=== PATIENT | male | born 2000 | race Two or more races ===

== ENCOUNTER → 2024-10-07 | Outpatient (CLI) | payer BC, SELFPAY ==
[2024-10-07 13:25] LABS: Basophils % (Auto) 1 % (0-2.5); Eosinophils % (Auto) 1 % (0-10); Hematocrit 39.4 % (41.0-53.0); Hemoglobin 13.5 g/dL (13.5-16.0); Immature Granulocytes % (Auto) 0 % (0-0); Immature Granulocytes Auto 0.02 Thou/mm3 (0.00-0.00); Lymphocytes # (Auto) 1.3 Thou/mm3 (1.0-4.8); Lymphocytes % (Auto) 21 % (10-50); Mean Corpuscular HGB Conc 34.3 g/dl (31.0-37.0); Mean Corpuscular Hemoglobin 31.6 pg (25.0-35.0); Mean Corpuscular Volume 92 fL (80-100); Monocytes # (Auto) 0.3 Thou/mm3 (0.0-0.8); Monocytes % (Auto) 5 % (0-12); Neutrophils # (Auto) 4.4 Thou/mm3 (1.8-7.7); Neutrophils % (Auto) 72 % (37-80); Nucleated Red Blood Cell % 0 /100 WBC (0); Platelet Count 237 Thou/mm3 (140-440); RDW Standard Deviation 44.1 fL (35.1-43.9); Red Blood Count 4.27 Miln/mm3 (4.50-5.90)
[2024-10-07 13:41] LABS: Prothrombin Time 10.9 Seconds (9.0-12.2)
[2024-10-07 13:44] LABS: Alanine Aminotransferase 45 U/L (10-49); Albumin, Serum 4.5 gm/dL (3.5-5.0); Alkaline Phosphatase 115 U/L (46-116); Anion Gap 5 (7-16); Aspartate Amino Transferase 36 U/L (0-34); BUN/Creatinine Ratio 22 Ratio (12-20); Bilirubin,Total 0.3 mg/dL (0.3-1.2); Blood Urea Nitrogen 20 mg/dL (9-23); Calcium 9.6 mg/dL (8.3-10.6); Calcium (Corrected) 9.6 mg/dL (8.5-10.1); Carbon Dioxide 30.4 mMol/L (20.0-31.0); Chloride 105 mMol/L (98-107); Creatinine (Component) 0.9 mg/dL (0.6-1.3); Globulin 1.5 gm/dL (2.3-3.5); Glucose 90 mg/dL (74-106); Osmolality,Calculated 282 (275-295); Potassium 4.7 mMol/L (3.4-5.1); Sodium 140 mMol/L (136-145); eGFR > 60 See Note
--- NOTE | 2024-10-07 14:00 | XR_ITS ---
Examination: Abdomen sonogram, complete Date and time of exam: October 07, 2024 1238 hours INDICATIONS: Fatty liver diagnosis one year ago. Technique: Multiple real-time grayscale transabdominal sonographic images of the abdomen have been obtained. Findings: 5 mm gallbladder polyp No gallstones Gallbladder wall 0.3 cm Normal common bile duct Pancreatic head 2.2 cm Aorta not enlarged Liver 18.2 cm fatty liver no focal liver lesions Normal hepatopedal portal venous flow Patent IVC Right kidney 13.0 x 5.8 x 5.1 cm cortex 1.6 cm Left kidney 12.4 x 5.4 x 5.5 cm cortex 2.1 cm Mild bilateral renal parenchymal scar formation Spleen 12.3 cm IMPRESSION: 5 mm gallbladder polyp, negative for cholelithiasis, negative for cholecystitis
== END | disposition home or self-care (01) ==
LOC: CDIM 12:22 → COPL 12:56
PROVIDERS: PCP Specialist; Referring Provider Internal Medicine; Visit Provider Radiology Diagnostic Radiology
DX: K82.4 Cholesterolosis of gallbladder (principal); R74.8 Abnormal levels of other serum enzymes
CPT/HCPCS: 36415; 76700; 80053; 85025; 85610

== ENCOUNTER → 2025-04-21 | Outpatient (CLI) | payer BC, SELFPAY ==
--- NOTE | 2025-04-21 10:15 | XR_ITS ---
Examination: Abdomen sonogram, complete Date and time of exam: April 21, 2025 10:22 AM INDICATIONS: History abdominal pain, diagnosis fatty liver one year ago, history gallbladder polyp on ultrasound October 07, 2024. Technique: Multiple real-time grayscale transabdominal sonographic images of the abdomen have been obtained. Findings: 5 mm gallbladder polyp Gallbladder wall 0.4 cm Common bile duct 0.1 cm Pancreatic head 2.1 cm Liver 17.1 cm fatty infiltration Normal hepatopedal portal venous flow Patent IVC Right kidney 12.4 cm cortex 1.7 cm Left kidney 11.7 cm cortex 2.2 cm Splenomegaly 13.9 cm IMPRESSION: 5 mm gallbladder polyp No gallstones Mild hepatomegaly fatty infiltration Mild splenomegaly
[2025-04-21 11:29] LABS: Glucose Estimated Average 88 mg/dL (80-131); Hemoglobin A1C 4.7 % Hgb (4.8-6.0)
[2025-04-21 11:34] LABS: Parathyroid Hormone Intact 34.4 pg/ml (18.5-88.0)
[2025-04-21 11:39] LABS: Alanine Aminotransferase 34 U/L (10-49); Albumin, Serum 4.3 gm/dL (3.5-5.0); Albumin/Globulin Ratio 2.4 (1.2-2.2); Alkaline Phosphatase 145 U/L (46-116); Anion Gap 7 (7-16); Aspartate Amino Transferase 33 U/L (0-34); BUN/Creatinine Ratio 16 Ratio (12-20); Bilirubin,Total 0.4 mg/dL (0.3-1.2); Blood Urea Nitrogen 14 mg/dL (9-23); Calcium 9.2 mg/dL (8.3-10.6); Calcium (Corrected) 9.2 mg/dL (8.5-10.1); Carbon Dioxide 27.7 mMol/L (20.0-31.0); Cardiac Risk Estimate 2.4 RATIO (4.0-6.7); Chloride 106 mMol/L (98-107); Cholesterol 121 mg/dL (132-200); Creatinine (Component) 0.9 mg/dL (0.6-1.3); Free T3 3.3 pg/mL (2.3-4.2); Free T4 (Free Thyroxine) 1.17 ng/dL (0.89-1.76); Globulin 1.8 gm/dL (2.3-3.5); Glucose 83 mg/dL (74-106); HDL Cholesterol 50 mg/dL (40-60); LDL Cholesterol,Calculated 55 mg/dL (0-130); Osmolality,Calculated 280 (275-295); Potassium 4.4 mMol/L (3.4-5.1); Sodium 141 mMol/L (136-145); Thyroid Stimulating Hormone 1.51 uIU/mL (0.55-4.78); Total Protein 6.1 gm/dL (5.7-8.2); Triglycerides 80 mg/dL (30-150); eGFR > 60 See Note
[2025-04-25 06:43] LABS: DHEA Sulfate* 181 mcg/dL (85-690); Prolactin* 6.4 ng/mL (2.0-18.0); Sex Hormone Binding Globulin* 44 nmol/L (10-50); Testosterone, Free,Dialysis 120.4 pg/mL (35.0-155.0); Testosterone, Total, Dialysis 593 ng/dL (250-1100); Vitamin D, 25-OH, D2 <4 ng/mL; Vitamin D, 25-OH, D3 30 ng/mL; Vitamin D, 25-OH, Total 30 ng/mL (30-100)
== END | disposition home or self-care (01) ==
LOC: CDIM 10:13 → COPL 10:44
PROVIDERS: PCP Specialist; Referring Provider Internal Medicine; Visit Provider Radiology Diagnostic Radiology
DX: K82.4 Cholesterolosis of gallbladder (principal); K76.0 Fatty (change of) liver, not elsewhere classified; R16.1 Splenomegaly, not elsewhere classified; R74.8 Abnormal levels of other serum enzymes
CPT/HCPCS: 36415; 76700; 80053; 80061; 82306; 82627; 83036; 83970; 84146; 84270; 84402; 84403; 84439; 84443; 84481